=== PATIENT | female | born 1980 ===

== ENCOUNTER 2022-04-01 19:38 | Emergency (ER) | payer SELFPAY ==
[2022-04-01 19:44] VITALS: BP 141/88; PULSE 85; O2SAT 99
[2022-04-01 19:59] VITALS: BP 99/71; PULSE 67; RESP 18; TEMP 36.2; O2SAT 100; BMI 27.3
== END 2022-04-02 01:02 | disposition left against medical advice (07) ==
PROVIDERS: Emergency Provider Emergency Medicine
DX: Z04.1 Encounter for examination and observation following transport accident (principal); M54.2 Cervicalgia
CPT/HCPCS: 99281